=== PATIENT | female | born 1985 | race Caucasian/White ===

== ENCOUNTER 2019-03-08 04:59 | Emergency (ER) | payer SELFPAY ==
[2019-03-08 05:02] VITALS: BP 122/82; PULSE 109; RESP 20; TEMP 36.5; O2SAT 100
--- NOTE | 2019-03-08 05:11 | W.ED.GENAD ---
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 Per the ultrasound there is still components in your uterus that have not yet been fully removed. It is expected that this will happen in the next 24 to 48 hours. For cramping control please take a maximum dose of 1000 mg of Tylenol every 6 hours and 600 mg of ibuprofen every 6 hours. If you notice continued or significant bleeding or cramping please return immediately to the emergency department for reassessment. We will set up an appointment for you with the obstetrics group here at [facility]. Please make sure to not miss this appointment. Please follow-up closely. If you notice any worsening of your symptoms, or any new symptoms such as vomiting, diarrhea, fever, chills, shortness of breath, chest pain, numbness, weakness, or fainting , please return immediately to the emergency department for reevaluation. Please follow up with your primary care provider as soon as possible for reassessment and reevaluation. As always, it was a pleasure participating in your medical care today. Your appointment for woman's wellness is March 10 at [address] Lawler. You can contact the OB clinic/woman's wellness clinic at [phone] Referrals: INTERPRETIVE PROGRAM COORDINATOR,[facility] [OTHER] - Rick Lawler MD [MD NON-[facility] STAFF PHYSICIAN] - Discharge Data Discharge Date/Time-TO BE ENTERED AT DEPARTURE: 03/08/19 08:55 Medical Decision Making <Kimani Borrego MD - Last Filed: 03/08/19 20:20> G1, P0 female presenting with vaginal bleeding and cramping. No previous ultrasound. Large clots removed from the vault. No tissue noted. Does not appear to be actively bleeding now. Os appears closed on speculum exam. IV established and laboratory studies including CBC, beta quant, type and screen sent. Transvaginal ultrasound ordered. Patient's hgb/hct is normal. She is A+ and does not need RhoGam. Beta quant seems a little low if she is truly 10 weeks . She has remained hemodynamically stable. She is pending transvaginal ultrasound. She will be signed out to oncoming physician, Dr. Stephenson. Lab Data Lab results reviewed: Yes I reviewed the patient's lab results. <Enoc Stephenson DO - Last Filed: 03/08/19 08:47> Case was signed out to me by my colleague Dr. Kimani Borrego. Pending ultrasound results. Patient's hemoglobin is stable, hemodynamically she is notably stable. She is a positive not requiring RhoGam. Clinical history abbreviated demonstrates a G1, P0 33-year-old female spotting roughly a week ago, with subsequent notable vaginal bleeding today and last night. Cramping. Ultrasound results demonstrate evidence of yolk sac remnant but no significant evidence of fetus. No heart sounds. Ultrasound clinically indicative of incomplete miscarriage. Although the patient [place] live in another town, and she has requested follow-up here as her boyfriend lives here in [facility]. Demonstrating hemodynamic stability, no signs of significant anemia, and vaginal bleeding that is notably improved while here, I feel that she is stable for discharge. With small components of the pole still present they do feel that the patient is suffering from an incomplete miscarriage. No indication for emergent D&C yet, expectant complete expulsion of products within the next 24 to 48 hours. Had a long discussion with the patient regarding red flags which to return, including signs and symptoms clinically indicative of retained products of conception requiring artificial removal. We have scheduled a follow-up appointment with our OB staff here for the patient. Will recommend NSAIDs, continued fluids, and close follow-up. I have extensively reviewed the treatment plan and discharge instructions with the patient and their family. I have addressed all patient concerns at this time. The patient and family was made aware of what symptoms to monitor for that would warrant a return to the emergency department. Discussed the plan with the patient and family, they demonstrate verbal understanding and agreement with our assessment and plan at this time. HPI <Kimani Borrego MD - Last Filed: 03/08/19 20:20> General Mode of arrival: ambulatory. Date/Time Provider Initiated Documentation: 03/08/19 05:09. Limitations to Documentation: no limitations. Information obtained by: patient and RN notes reviewed. HPI Narrative: Patient presents to ED with vaginal bleeding. She is approximately 10 weeks with an EDC of 09/17/2019 and LMP mid December. She has had spotting last week. Last night she had intercourse with her significant other. She had a little bit of spotting after this. This morning when she got up she was gushing blood. She is having some midline cramping. She continues to have bleeding. This is her first . She has not had ultrasound to confirm intrauterine . She has not having severe abdominal pain. There has been no syncope, chest pain, shortness of breath. Related Data Home Medications Medication Instructions Recorded Confirmed Unknown [No Known Home Meds] 03/08/19 03/08/19 Allergies Allergy/AdvReac Type Severity Reaction Status Date / Time No Known Allergies Allergy Unverified 03/08/19 05:08 General Stated Complaint: INTERPRETIVE PROGRAM COORDINATOR JOHNNY: 2 Review of Systems <Kimani Borrego MD - Last Filed: 03/08/19 20:20> Review of Systems 04/24 Review of Systems completed and is negative except as stated above in HPI (Systems reviewed: Const, Eyes, ENT, Resp, CV, GI, , MSK, Skin, Neuro) PFSH <Kimani Borrego MD - Last Filed: 03/08/19 20:20> Social History (Updated 03/08/19 @ 06:45 by Kimani Borrego MD) Alcohol Intake: former Details: stopped drinking when found out she was History History 1 Para 0 Hx # Term Pregnancies Multiple births Hx # Pregnancies Ectopic pregnancies AB induced Hx Number of Living Children AB spontaneous Exam <Kimani Borrego MD - Last Filed: 03/08/19 20:20> Narrative Exam Narrative: Vitals: Afebrile. Mild tachycardia, otherwise normal vitals. Const: Obese female in NAD. HEENT: NC/AT. Normal facial exam. Eyes: Normal conjunctiva and sclera. Neck: Supple. Trachea midline. Lungs: Normal respiratory effort. Lungs are clear. Cor: RRR without murmur/gallop. GI: Soft. NT/ND. No guarding or rebound. Pelvic: On speculum exam 3 large clots were removed from the vaginal vault. No tissue noted. Cervix is deep and anterior. It appears to be closed with no active bleeding. Neuro: A+O x 3. CN grossly in tact. Good strength and no focal deficit. Ext: No C/C/E. Skin: Warm and dry without rash. Course <Kimani Borrego MD - Last Filed: 03/08/19 20:20> Vital Signs Temperature 97.7 F 03/08/19 05:02 Pulse 109 H 03/08/19 05:02 Respiratory Rate 20 03/08/19 05:02 Blood Pressure 122/82 03/08/19 05:02 Pulse Oximetry 100 03/08/19 05:02 Temperature 97.7 F 03/08/19 05:02 Temperature Source Skin 03/08/19 05:02 Pulse 109 H 03/08/19 05:02 Respiratory Rate 20 03/08/19 05:02 Blood Pressure 122/82 03/08/19 05:02 Blood Pressure Position Sitting 03/08/19 05:02 Pulse Oximetry 100 03/08/19 05:02 Oxygen Delivery Method Room Air 03/08/19 05:02 Oxygen Flow Rate 0 03/08/19 05:02 Pain Level 2 03/08/19 05:02 Sign Out <Kimani Borrego MD - Last Filed: 03/08/19 20:20> Sign Out Data: Sign Out Comment: pending U/S Last updated by Kimani Borrego MD at 03/08/19 07:55
--- NOTE | 2019-03-08 05:17 | DI.US_ITS ---
Many abnormalities cannot be diagnosed. A normal exam does not exclude a congenital anomaly. HISTORY: 1ST TRIMESTER BLEEDING Date of exam: 03/08/19 LMP: 12/24/18 EDC by LMP: 09/30/19 Previous study: 10.4 wks Range: 9.4 to 11.4 EDC by prior us: Findings: Prior surgery/: BIOMETRY: PELVIC MEASUREMENTS: CRL: mm wks Uterus: 10.6 x 5.2 x 5.9 cm Yolk sac: mm wks Gest sac: mm wks Rt Ovary: x x cm BPD: mm wks HC: mm wks Lt Ovary: 2.9 x 1.9 x 2.0 cm AC: mm wks FL: mm wks Comments: Composite Age (US): wks EDC by US: Heart Rate: BPM Amniotic Fluid: Oligo Normal Polyhydramnios Movement noted: Yes No Comments: Routine examination was performed. There is an elongated gestational sac seen in the lower uterine segment extending into the cervix. No pole is seen. A yolk sac was visualized. The gestational sac has an abnormal contour and size. There is some debris seen within the cervical canal which may represent hemorrhage. The left ovary was visualized and is grossly unremarkable. The right ovary was not visualized on this examination. The uterus measures 10.6 cm. long by 5.2 cm. AP by 5.9 cm. transverse. IMPRESSION: Abnormal size and appearance of the intrauterine gestational sac. No demonstrable pole in this patient. The appearance is most suggestive of non viable /spontaneous . The findings were discussed with the ER on the date on the date of the examination.
[2019-03-08 05:34] LABS: HCT 38.3 % (36.0-46.0); HGB 13.5 g/dL (12.0-15.5); Mean Corp. HGB Concentration 35.2 g/dL (32.0-36.0); Mean Corpuscular Hemoglobin 32.7 pg (27.0-33.0); Mean Corpuscular Volume 92.7 fL (80-95); Mean Platelet Volume 9.4 fL (8.0-11.0); Platelet Count 326 x1000/uL (130-400); RBC 4.13 m/cumm (4.00-5.20); RBC Distribution Width 11.9 % (11.7-14.6); White Blood Cell Count 8.86 k/cumm (4.4-10.8)
[2019-03-08] MEDS: Lactated Ringers 1,000 ML 200 ML IV (06:02)
[2019-03-08 06:13] LABS: HCG Quant, Pregnancy 5489 mIU/mL (1-3)
[2019-03-08 07:07] VITALS: BP 117/67; PULSE 74; RESP 16; TEMP 37.3; O2SAT 100
--- NOTE | 2019-03-08 08:42 | NUR.NOTE ---
Nursing Note: Appt. for Women's Wellness, @ 9am. With Dr. Lawler. Samra Paniagua.
[2019-03-08 08:56] VITALS: BP 146/72; PULSE 74; RESP 18; TEMP 36.5; O2SAT 98
== END 2019-03-08 08:55 | disposition home or self-care (01) ==
PROVIDERS: Emergency Medicine; Emergency Provider Student in an Organized Health Care Education/Training Program
DX: O03.4 Incomplete spontaneous abortion without complication (principal); Z3A.10 10 weeks gestation of pregnancy
CPT/HCPCS: 36415; 85027; 86850; 86900; 86901; 96360; 96361; 99284; 76817; 84702

== ENCOUNTER 2019-03-10 12:34 | Outpatient (REF) | payer SELFPAY ==
--- NOTE | 2019-03-10 09:40 | POCSPONT_PTH ---
PATIENT: NATA KHAN LOC: [facility] U#:[id number] AGE/SX: 33/F ROOM: RE03/10/[address]: Rick Lawler MD : 1985 BED: DIS: 03/10/2019 SPEC #: [id number] RECD: 03/10/19 12:47 STATUS: DRISS REQ #: [id number] RONDA: 03/10/19 09:[address]: Rick Lawler DEPT: Surgical Specimen RECD BY: Gabby Silverio ENTERED: 03/10/19 12:47 SP TYPE: PIA BAY DR: Unknown,Unknown Tissues: 1 - ,SPONTANEOUS Procedures: GROSS AND MICRO LEVEL 4 Comments: [id number]
== END 2019-03-10 12:54 ==
LOC: LBN 12:34
PROVIDERS: Visit Provider Obstetrics & Gynecology
DX: O73.1 Retained portions of placenta and membranes, without hemorrhage (principal); O03.4 Incomplete spontaneous abortion without complication
CPT/HCPCS: 88305